=== PATIENT | female | born 1975 | race Caucasian/White ===

== ENCOUNTER 2018-08-31 09:32 | Day surgery (SDC) | payer OTHER ==
[2018-08-26 15:57] VITALS: BMI 26.0
[2018-08-31 08:24] VITALS: BP 118/65; PULSE 68; TEMP 98.8
== END 2018-08-31 13:57 | disposition home or self-care (01) ==
LOC: JASU-SURG 09:32
PROVIDERS: ATTEND Obstetrics & Gynecology
DX: Z53.8 Procedure and treatment not carried out for other reasons (principal)
CPT/HCPCS: 84703

== ENCOUNTER 2018-09-28 05:09 | Day surgery (SDC) | payer OTHER ==
[2018-09-24 13:22] VITALS: BMI 26.0
[2018-09-28] MEDS ORDERED: ROCURONIUM BROMIDE 50 MG/5 ML VIAL ONE (08:25)
[2018-09-28] MEDS ORDERED: PROPOFOL 20 ML ONE (08:25)
[2018-09-28] MEDS ORDERED: DEXAMETHASONE SOD PHOSPHATE 4 MG/1 ML VIAL ONE (08:26)
[2018-09-28] MEDS ORDERED: LIDOCAINE HCL/PF 2% SDV 5ML VIAL ONE (08:26)
[2018-09-28] MEDS ORDERED: MIDAZOLAM HCL 2 MG/2 ML SINGLE DOSE VIAL ONE (08:26)
[2018-09-28] MEDS ORDERED: NEOSTIGMINE METHYLSULFATE 0.5 MG/ML - 10 ML MDV ONE (08:40)
--- NOTE | 2018-09-28 08:58 | HP ---
Admitting History and Physical - Admission Chief Complaint: Elevated Ovarian Cancer Risk History of Present Illness: 43yo here for prophylactic bilateral salpingo-oophrectomy for an elevated Ovarian CA risk. No complaints today. Sister suddenly from ovarian cancer in [place], age 50's. Patient underwent genetic testing, revealing an increased risk. 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: Alzheimer's, CVA, Dementia, Migraine, Multiple Sclerosis, Peripheral Neuropathy, Parkinson's, Seizure, Syncope, TIA, Vertigo, Other Cardiovascular: No: AFIB, Aneurysm, Aortic Insufficiency, Aortic Stenosis, CAD, CHF, Deep Vein Thrombosis, HTN, Hyperlipdemia, OR, Mitral Insufficiency, Mitral Stenosis, Murmur, Pulmonary Hypertension, Other Pulmonary: No: Asthma, Bronchitis, Cancer, COPD, O2 Dependent, Pneumonia, Previously Intubated, Pulmonary Embolus, Pulmonary Fibrosis, Sleep Apnea, Other Gastrointestinal: No: Ascites, Cancer, Constipation, Crohn's Disease, Diverticulitis, Diverticulosis, Esophageal Varices, Gastritis, GERD, GI Bleed, Hemorrhoids, Hiatal Hernia, Inflamatory Bowel Disease, Irritable Bowel Disease, Pancreatitis, Peptic Ulcer Disease, Ulcerative Colitis, Other Hepatobiliary: No: Cirrhosis, Cholelithiasis, Cholecystitis, Choledocholithiasis , Hepatitis A, Hepatitis B, Hepatitis C, Other Renal/: No: Renal Failure, Renal Inusuff, BPH, Cancer, Hematuria, Hemodialysis , Neurogenic Bladder, Renal Calculi, UTI, Other Reproductive: No: Ectopic , Endometriosis, Fibroids, PID, Polycystic Ovary Syndrome, Postmenopausal, Other ...LMP: 08/30/18 ...: No ...: 1 ...Para: 1 Heme/Onc: No: Anemia, B12 Deficiency, Bleeding Disorder, Cancer, Current Chemotherapy, Current Radiation Therapy, Hemochromatosis, Hypercoaguable State, Myeloproliferative Synd, Sickle Cell Disease, Sickle Cell Trait, Thrombocytopenia, Other Psych: Yes: Anxiety. No: Addictions, Bipolar, Depression, Panic Musculoskeletal: No: Bursitis, Chronic low back pain, Hemiparesis, Hemiplegia, Osteoarthritis, Paraplegia, Other Rheumatology: No: Fibromyalgia, Gout, Lupus, Rheumatoid Arthritis, Sarcoidosis, Vasculitis, Other Endocrine: No: Collin's Disease, Justin's Disease, Diabetes Insipidus, Diabetes Mellitus, Hyperparathyroidism, Hyperthyroidism, Hypothyroidism, Osteopenia, SIADH, Other Dermatology: No: Basal Cell, Cellulitis, Eczema, Melanoma, Psoriasis, Squamous Cell, Other - Past Surgical History Past Surgical History: Yes: None, - Smoking History Smoking history: Never smoked Have you smoked in the past 12 months: No - Alcohol/Substance Use Hx Alcohol Use: No History of Substance Use: reports: None - Social History Usual Living Arrangement: Yes: With Spouse ADL: Independent History of Recent Travel: No Home Medications - Allergies Allergies/Adverse Reactions: Allergies Allergy/AdvReac Type Severity Reaction Status Date / Time No Known Allergies Allergy Verified 08/26/18 15:41 - Home Medications Home Medications: Ambulatory Orders Loratadine [Claritin] 10 mg PO PRN PRN 08/26/18 Family Disease History - Family Disease History Family Disease History: CA: Sister (Ovarian Cancer, 50s) Review of Systems - Review of Systems Constitutional: denies: No Symptoms, Chills, Diaphoresis, Fever, Lethargy, Loss of Appetite, Malaise, Night Sweats, Unintentional Wgt. Loss, Weakness, Other Eyes: denies: No Symptoms, Blind Spots, Blurred Vision, Double Vision, Eye Pain , Floaters, Photophobia, Recent Change in Vision, Other HENT: denies: No Symptoms, Difficult Swallowing, Ear Discharge, Ear Pain, Epistaxis, Gingival Bleeding, Hearing Loss, Mouth Swelling, Nasal Congestion, Ocular Prosthesis, Throat Pain, Toothache, Ringing in Ears, Other Neck: denies: No Symptoms, Decreased ROM, Lumps, Pain on Movement, Stiffness, Swollen Glands, Tenderness, Other Cardiovascular: denies: No Symptoms, Chest Pain, Edema, Palpitations, Shortness of Breath, Other Respiratory: denies: No Symptoms, Cough, Exercise Intolerance, Hemoptysis, Orthopnea, PND, Snoring, SOB, SOB on Exertion, Wheezing, Other Gastrointestinal: denies: No Symptoms, Abdominal Pain, Bloating, Constipation, Diarrhea, Dysphagia, Indigestion, Melena, Nausea, Rectal Bleeding, Vomiting, Vomiting Blood, Other Genitourinary: denies: No Symptoms, Burning, Discharge, Dysuria, Flank Pain, Frequency, Hematuria, Incontinence, Lesions, Menses, Pain, Testicular Mass, Testicular Pain, Testicular Swelling, Urgency, Vaginal Bleeding, Other Breasts: denies: No Symptoms Reported, See HPI, Breast Implants, Discharge from Nipple, Lumps, Pain, Skin Changes, Other Musculoskeletal: denies: No Symptoms, Back Pain, Crepitus, Decreased ROM, Extremity Pain, Joint Pain, Joint Swelling, Muscle Pain, Muscle Cramps, Muscle Weakness, Other Integumentary: denies: No Symptoms, Blister, Bruising, Change in Color, Eczema, Erythema, Incision, Lesions, Lump, Pallor, Pruritis, Rash, Wound, Other Neurological: denies: No Symptoms, Change in LOC, Change in Speech, Confusion, Dizziness, Headache, Incoordination, Numbness, Parasthesia, Pre-Existing Deficit , Seizure, Syncope, Tremors, Unsteady Gait, Weakness, Other Endocrine: denies: No Symptoms, Excessive Sweating, Flushing, Increased Hunger, Increased Thirst, Intolerance to Cold, Intolerance to Heat, Unexplained Weight Gain, Unexplained Weight Loss, Other Hematology/Lymphatic: denies: No Symptoms, Easily Bruised, Excessive Bleeding, Swollen Glands, Other Psychiatric: denies: No Symptoms, Altered Sleep Pattern, Anxiety, Depression, Hallucinations, Panic, Paranoia, Suicidal, Other Physical Examination Vital Signs: Vital Signs Temperature 98.2 F 09/28/18 08:07 Pulse Rate 68 09/28/18 08:07 Respiratory Rate 20 09/28/18 08:07 Blood Pressure 109/67 09/28/18 08:07 O2 Sat by Pulse Oximetry (%) 98 09/28/18 08:07 Constitutional: Yes: Well Nourished, No Distress, Calm Eyes: Yes: WNL, Conjunctiva Clear, EOM Intact HENT: Yes: WNL, Atraumatic, Normocephalic Neck: Yes: WNL, Supple, Trachea Midline Cardiovascular: Yes: WNL, Regular Rate and Rhythm Respiratory: Yes: WNL, Regular, CTA Bilaterally Gastrointestinal: Yes: WNL, Normal Bowel Sounds Musculoskeletal: Yes: WNL Extremities: Yes: WNL Edema: No Integumentary: Yes: WNL Neurological: Yes: WNL, Alert, Oriented ...Motor Strength: WNL Psychiatric: Yes: WNL Imaging - Results Ultrasound: Report Reviewed Problem List - Problems (1) Ovarian cancer genetic susceptibility Code(s): Z15.02 - GENETIC SUSCEPTIBILITY TO MALIGNANT NEOPLASM OF OVARY Assessment/Plan 43yo here with an elevated ovarian cancer risk on genetic testing NPO, IVFs SCDs/TEDs Risk of procedure reviewed with patient, including postoperative surgical menopause. Risk of bleeding, infection and injury to bladder/ureters/bowel/ uterus discussed. All questions answered. Consent signed. Silas Starks MD
[2018-09-28] MEDS ORDERED: BUPIVACAINE HCL/PF 0.5% (5MG/ML) 10 ML VIAL ONE (09:11)
[2018-09-28] MEDS ORDERED: BUPIVACAINE HCL/PF 0.5% (5 MG/ML) 30 ML VIAL IJ ONE ×2 (09:56)
[2018-09-28] MEDS ORDERED: GLYCOPYRROLATE 0.2 MG/1 ML VIAL ONE (10:18)
[2018-09-28] MEDS ORDERED: KETOROLAC TROMETHAMINE 30 MG/1 ML VIAL ONE (10:29)
--- NOTE | 2018-09-28 10:40 | OP ---
Operative Note - Note: Operative Date: 09/28/18 Pre-Operative Diagnosis: Elevated Ovarian Cancer Risk Operation: Laparoscopic Bilateral Salpingo-Oophrectomy Findings: Normal tubes and ovaries bilaterally. Normal uterus Post-Operative Diagnosis: Same as Pre-op Surgeon: Iwona Starks Shearing Machine Operator: Jerrod Green Anesthesia: General Specimens Removed: Bilateral Fallopian tubes and ovaries Estimated Blood Loss (mls): 20 Drains, Volume Out (mls): 500 (clear urine) Operative Report Dictated: Yes
--- NOTE | 2018-09-28 10:42 | SURG ---
Surgery Jacquard Loom Carpet Weaver Note Jacquard Loom Carpet Weaver: Jerrod Green PA-C Date of Service: 09/28/18 Diagnosis: Elevated Ovarian CA risk. Genetic testing, revealing an increased risk Sister suddenly from ovarian cancer in [place], age 50's. Procedure: Laprascopic bilateral salpingo-oophrectomy I was present for the entirety of the operative procedure. For further detail, please refer to operative report. Visit type - Case Type Case Type: Scheduled - New patient This patient is new to me today: Yes Date on this admission: 09/28/18
[2018-09-28 12:42] VITALS: TEMP 98.2
[2018-09-28] MEDS ORDERED: oxyCODONE HCL 5 MG TABLET PO PRN ×2 (12:52)
[2018-09-28] MEDS ORDERED: ONDANSETRON 4 MG/2 ML VIAL IVPUSH PRN (12:52)
[2018-09-28] MEDS ORDERED: LACTATED RINGERS SOLUTION 1,000 ML IV SCH (13:00)
[2018-09-28] MEDS ORDERED: oxyCODONE HCL 5 MG TABLET PO ONE ×2 (13:35→15:00)
[2018-09-28] MEDS ORDERED: oxyCODONE HCL 5 MG TABLET ONE ×2 (13:38→14:59)
[2018-09-28 16:23] VITALS: BP 128/70; PULSE 78
--- NOTE | 2018-09-30 10:13 | PATH ---
Surgical Pathology Report Patient Name: WALT LYONS [facility]. Rec. #: [id number] /Age/Gender: 1975 (Age: 43) / F Account: [id number] Location: [facility] SURGICAL Taken: 09/28/2018 Received: 09/28/2018 Reported: 09/30/2018 Physicians: Iwona Starks Specimen(s) Received A: RIGHT FALLOPIAN TUBE AND OVARY B: LEFT FALLOPIAN TUBE AND OVARY Clinical History 43-year-old female with elevated ovarian cancer risk Final Diagnosis A. RIGHT FALLOPIAN TUBE AND OVARY, SALPINGO-OOPHORECTOMY: OVARY WITH CYSTIC FOLLICLES. PORTION OF FALLOPIAN TUBE WITH ENDOSALPINGIOSIS. B. LEFT FALLOPIAN TUBE AND OVARY, SALPINGO-OOPHORECTOMY: OVARY WITH CYSTIC CORPUS LUTEUM AND CYSTIC FOLLICLES. PORTION OF FALLOPIAN TUBE WITH PARATUBAL CYSTS. Electronically Signed Sabina Pradhan M.D. Gross Description A. Received in formalin labeled "right fallopian tube and ovary," is a 3 cm in length fimbriated fallopian tube. The outer surface is davis-pink and smooth. Sectioning reveals an unremarkable lumen. There is a 3.1 x 2.2 x 1.0 cm ovary attached to the fallopian tube. The outer surface of the ovary is davis-yellow and smooth. Sectioning reveals unremarkable ovarian parenchyma. Felt Checker sections are submitted in 3 cassettes as follows: 1-fimbria; 2-cross sections of fallopian tube; 3-ovary. B. Received in formalin labeled "left fallopian tube and ovary," is a 4.5 cm in length fimbriated fallopian tube. The outer surface is davis-pink with a focal 0.7 cm in greatest dimension paratubal cyst attached. Sectioning reveals unremarkable lumen. There is a 3.7 x 1.8 x 1.1 cm ovary attached to the fallopian tube. The outer surface is davis-yellow, convoluted and smooth. Sectioning reveals a 1.5 cm in greatest dimension corpus luteum. The remaining ovarian parenchyma is unremarkable. Felt Checker sections are submitted in 4 cassettes as follows: 1-fimbria; 2-cross sections of fallopian tube; 3-corpus luteum; 4-additional ovarian parenchyma. /09/28/2018 saudi09/28/2018
--- NOTE | 2018-12-02 10:00 | OP ---
DATE OF OPERATION: 09/28/2018 PREOPERATIVE DIAGNOSIS: Elevated ovarian cancer risk. POSTOPERATIVE DIAGNOSIS: Elevated ovarian cancer risk. PROCEDURE: Laparoscopic bilateral salpingo-oophorectomy. ANESTHESIA: General. SURGEON: Iwona Starks MD FRATERNITY HOUSE COOK: PHILLIP Najera ESTIMATED BLOOD LOSS: 20. IV FLUIDS: Per Anesthesia record. URINE OUTPUT: 500 mL of clear urine. FINDINGS: Normal bilateral fallopian tubes and ovaries, normal uterus. CONDITION: Stable to recovery room. NATURE OF PROCEDURE: After the appropriate consents were signed, patient was taken to the operating room. General anesthesia was administered. She was placed in dorsal lithotomy position. The abdomen was prepped and draped in the normal sterile fashion. A sterile Brownlee catheter was inserted into the bladder. Then 0.5% of Marcaine was injected into the umbilicus. A 5-mm stab incision wound was made. A 5-mm scope was then inserted under direct visualization, confirming correct placement into the abdomen. The abdomen was then insufflated with gas. The patient was placed in Trendelenburg position. Under direct visualization, a 5-mm port was inserted into the left lower quadrant and the right lower quadrant. The bowel omentum was swept away. The abdomen and pelvis were inspected and noted to be normal, normal uterus, normal fallopian tubes, normal ovaries. Ureters were identified. The patient's left IP ligament was identified, grasped, and suture ligated with the LigaSure device, and then subsequent bite sites along up to the insertion to the uterus along the mesosalpinx and broad ligament. The fallopian tube and ovary were ligated with the LigaSure device. The fallopian tube was transected at its insertion to the uterus. Specimen was then placed in the patient's anterior cul-de-sac. Attention was then paid to the patient's right fallopian tube and ovary, which were taken down in a similar fashion. Both bite site areas were inspected and noted to be hemostatic. The left lower quadrant port was then extended to accommodate a 12-mm port, to which an Endobag was then inserted into the pelvis, and the left fallopian tube and ovary were removed. A subsequent new bag was inserted, and the right fallopian tube and ovary were then also removed without difficulty. Both specimens were sent to Pathology separately. The left lower quadrant port was then closed with a Roland-Peyton and a 0 Vicryl. The right lower quadrant port was removed under direct visualization. The umbilical port was then removed without difficulty. The abdomen was deflated of gas. A 4-0 Biosyn was used to close the skin incisions. Appropriate bandages were placed. The patient did not receive antibiotics at the start of the procedure. The Brownlee catheter was taken out. The patient was taken from the operating room to the recovery room in stable condition. MD TAY URIAS/[id number]
== END 2018-09-28 16:58 | disposition home or self-care (01) ==
LOC: JASU-SURG 05:09
PROVIDERS: ATTEND Obstetrics & Gynecology
PROC: 0UB74ZZ Excision of Bilateral Fallopian Tubes, Percutaneous Endoscopic Approach (ICD-10-PCS; 2018-09-28)
PROC: 0UB24ZZ Excision of Bilateral Ovaries, Percutaneous Endoscopic Approach (ICD-10-PCS; principal; 2018-09-28 09:00)
DX: Z15.02 Genetic susceptibility to malignant neoplasm of ovary (principal); Z80.41 Family history of malignant neoplasm of ovary; Z40.02 Encounter for prophylactic removal of ovary(s)
CPT/HCPCS: 84703; 88305-TC; 94760